=== PATIENT | female | born 1960 | race Caucasian/White ===

== ENCOUNTER → 2017-06-12 | Outpatient (CLI) | payer BC ==
--- NOTE | 2017-06-14 06:58 | MM ---
Reason for exam: screening (asymptomatic). Last mammogram was performed 1 year ago. History: Family history of breast cancer in mother at age 77. Physical Findings: A clinical breast exam by your physician is recommended on an annual basis and results should be correlated with mammographic findings. MG Screening Mammo w CAD Bilateral CC and MLO view(s) were taken. Prior study comparison: June 05, 2016, bilateral MG screening mammo w CAD. May 31, 2015, bilateral MG screening mammo w CAD. The breast tissue is heterogeneously dense. This may lower the sensitivity of mammography. No significant changes when compared with prior studies. ASSESSMENT: Negative, BI-RAD 1 RECOMMENDATION: Routine screening mammogram of both breasts in 1 year.
== END | disposition home or self-care (01) ==
LOC: RADMAMWWP 11:53
PROVIDERS: ATTEND Obstetrics & Gynecology
DX: Z12.31 Encounter for screening mammogram for malignant neoplasm of breast (principal)

== ENCOUNTER → 2017-10-11 | Outpatient (CLI) | payer BC ==
[2017-10-11 09:19] LABS: T4, Free (Free Thyroxine) 0.79 ng/dL (0.78-2.19)
== END | disposition home or self-care (01) ==
LOC: LABWHC1 08:34
PROVIDERS: ATTEND Obstetrics & Gynecology
DX: E78.4 Other hyperlipidemia (principal)
CPT/HCPCS: 36415; 80061; 84439; 84443

== ENCOUNTER → 2018-06-16 | Outpatient (CLI) | payer BC ==
--- NOTE | 2018-06-17 09:21 | MM ---
Reason for exam: screening (asymptomatic). Last mammogram was performed 1 year ago. History: Patient history of other cancer. Family history of breast cancer in mother at age 77. Physical Findings: A clinical breast exam by your physician is recommended on an annual basis and results should be correlated with mammographic findings. MG Screening Mammo w CAD Bilateral CC and MLO view(s) were taken. Prior study comparison: June 12, 2017, bilateral MG screening mammo w CAD. June 05, 2016, bilateral MG screening mammo w CAD. The breast tissue is extremely dense which could obscure a lesion on mammography. No significant changes when compared with prior studies. ASSESSMENT: Benign, BI-RAD 2 RECOMMENDATION: Routine screening mammogram of both breasts in 1 year.
== END | disposition home or self-care (01) ==
LOC: RADMAMWWP 11:52
PROVIDERS: ATTEND Obstetrics & Gynecology
DX: Z12.31 Encounter for screening mammogram for malignant neoplasm of breast (principal)
CPT/HCPCS: 77067

== ENCOUNTER → 2019-07-10 | Outpatient (CLI) | payer BC ==
--- NOTE | 2019-07-10 10:05 | BD ---
EXAMINATION TYPE: Axial Bone Density DATE OF EXAM: 07/10/2019 COMPARISON: Prior DEXA bone scan 2014 CLINICAL HISTORY: Postmenopausal female Height: 68 Weight: 213.8 FRAX RISK QUESTIONS: Alcohol (3 or more units per day): no Family History (Parent hip fracture): no Glucocorticoids (More than 3mos): no (Ex: prednisone, prednisolone, methylprednisolone, dexamethasone, and hydrocortisone). History of Fracture in Adulthood: no Secondary Osteoporosis: 1. Type 1 Diabetes: no 2. Hyperthyroidism: no 3. Menopause before 45: yes 4. Malnutrition: no 5. Chronic liver disease: no Rheumatoid Arthritis: no Current Tobacco Use: no RISK FACTORS HISTORY OF: Family History of Osteoporosis: yes Active: yes Diet low in dairy products/other sources of calcium: yes Postmenopausal woman: before age 47 Lost more than 2 inches in height since high school: no MEDICATIONS: singular, amitriptyline, migraine med as needed Additional History: EXAM MEASUREMENTS: Bone mineral densitometry was performed using the [employer] System. Bone mineral density as measured about the Lumbar spine is: ----- L1-L4(G/cm2): 1.286 T Score Values are as follows: ----- L2: 0.1 ----- L3: 1.9 ----- L4: 0.8 ----- L1-L4: 0.9 Bone mineral density has: increased 5.4 % since study of: 06.01.2015 Bone mineral density about the R hip (g/cm2): 1.048 Bone mineral density about the L hip (g/cm2): 1.010 T Score values are as follows: -----R Neck: 0.1 -----L Neck: -0.2 -----R Total: 0.4 -----L Total: 0.1 Bone mineral density has: % since study of: 06.01.2015 IMPRESSION: Normal range remains present. (Values between +1 and -1 indicate normal bone mass). Consider repeati ng this study in 5 years or sooner if there is some new clinical indication. NOTE: T-SCORE=SD OF THE YOUNG ADULT MEAN.
[2019-07-10 10:26] LABS: Cholesterol 187 mg/dL (<200); Glucose 100 mg/dL (74-99); HDL Cholesterol 37 mg/dL (40-60); LDL Cholesterol,Calculated 108 mg/dL (0-99); Triglycerides 210 mg/dL (<150)
--- NOTE | 2019-07-13 08:17 | MM ---
Reason for exam: screening (asymptomatic). Last mammogram was performed 1 year and 1 month ago. History: Patient history of other cancer. Family history of breast cancer in mother at age 77. Physical Findings: A clinical breast exam by your physician is recommended on an annual basis and results should be correlated with mammographic findings. MG Screening Mammo w CAD Bilateral CC and MLO view(s) were taken. Prior study comparison: June 16, 2018, bilateral MG screening mammo w CAD. June 12, 2017, bilateral MG screening mammo w CAD. The breast tissue is extremely dense which could obscure a lesion on mammography. No significant changes when compared with prior studies. ASSESSMENT: Benign, BI-RAD 2 RECOMMENDATION: Routine screening mammogram of both breasts in 1 year.
== END | disposition home or self-care (01) ==
LOC: RADMAMWWP 09:05
PROVIDERS: ATTEND Obstetrics & Gynecology
DX: Z12.31 Encounter for screening mammogram for malignant neoplasm of breast (principal); Z13.820 Encounter for screening for osteoporosis; Z13.220 Encounter for screening for lipoid disorders
CPT/HCPCS: 36415; 77067; 77080; 80061; 82947

== ENCOUNTER 2020-05-13 12:09 | Observation (INO) | payer BC ==
[2020-05-13] MEDS ORDERED: ASPIRIN 81 MG PO STA (12:24)
[2020-05-13 13:03] LABS: Basophils % (A) 0 %; Eosinophils # (A) 0.1 k/uL (0-0.7); Eosinophils % (A) 1 %; HCT 44.6 % (34.0-46.0); HGB 14.7 gm/dL (11.4-16.0); Lymphocytes # (A) 1.8 k/uL (1.0-4.8); Lymphocytes % (A) 32 %; MCH 29.6 pg (25.0-35.0); MCV 89.5 fL (80.0-100.0); Mean Platelet Volume 8.6; Monocytes # (A) 0.5 k/uL (0-1.0); Monocytes % (A) 8 %; Neutrophils # (A) 3.1 k/uL (1.3-7.7); Neutrophils % (A) 54 %; Platelet Count 181 k/uL (150-450); RBC 4.98 m/uL (3.80-5.40); RDW 12.8 % (11.5-15.5); WBC 5.6 k/uL (3.8-10.6)
[2020-05-13 13:11] LABS: ALT 17 U/L (4-34); AST 30 U/L (14-36); African American GFR (CKD) >90 (>60 ml/min/1.73 sqM); Albumin 4.3 g/dL (3.5-5.0); Alkaline Phosphatase 121 U/L (38-126); Anion Gap 8 mmol/L; Blood Urea Nitrogen 16 mg/dL (7-17); Calcium 9.2 mg/dL (8.4-10.2); Carbon Dioxide 24 mmol/L (22-30); Chloride 108 mmol/L (98-107); Glucose 96 mg/dL (74-99); Non-African American GFR(CKD) >90 (>60 ml/min/1.73 sqM); Potassium 4.2 mmol/L (3.5-5.1); Sodium 140 mmol/L (137-145); Total Bilirubin 0.7 mg/dL (0.2-1.3); Total Protein 6.8 g/dL (6.3-8.2)
[2020-05-13 13:17] LABS: D-Dimer 0.29 mg/L FEU (<0.60); Prothrombin Time 10.2 sec (9.0-12.0)
[2020-05-13 13:18] LABS: Partial Thromboplastin Time 23.1 sec (22.0-30.0)
--- NOTE | 2020-05-13 13:26 | ED ---
Chest Pain HPI - General Chief Complaint: Chest Pain Stated Complaint: SOB, chest pain Time Seen by Provider: 05/13/20 12:13 Source: patient, RN notes reviewed Mode of arrival: wheelchair Limitations: no limitations - History of Present Illness Initial Comments: 59-year-old female presents emergency Department chief complaint of chest pain and shortness breath. Patient states that left shoulder pain for a week or so but states around 1 AM is when she developed sharp chest pain, shortness of breath. She states that she's had some nausea and felt diaphoretic. Patient denies any headache or nausea vomiting diarrhea constipation. Denies any significant cardiac history. No history of PE or DVT. - Related Data Home Medications Medication Instructions Recorded Confirmed Albuterol Sulfate [Proair Hfa] 1 - 2 puff INHALATION RT-Q6H PRN 03/28/16 05/13/20 Amitriptyline HCl 50 mg PO HS 03/28/16 05/13/20 Baclofen 10 mg PO Q6H PRN 03/28/16 05/13/20 Butalb/APAP/Caff 50-325-40Mg 1 - 2 tab PO DAILY PRN 03/28/16 05/13/20 [Fioricet 50-325-40] Eletriptan [Relpax] 40 mg PO DAILY PRN 03/28/16 05/13/20 Lansoprazole [Prevacid] 30 mg PO DAILY PRN 03/28/16 05/13/20 Cetirizine HCl [Zyrtec] 10 mg PO DAILY 05/13/20 05/13/20 Meloxicam [Mobic] 7.5 - 15 mg PO DAILY PRN 05/13/20 05/13/20 Allergies Allergy/AdvReac Type Severity Reaction Status Date / Time No Known Allergies Allergy Verified 05/13/20 13:58 Review of Systems ROS Statement: Those systems with pertinent positive or pertinent negative responses have been documented in the HPI. ROS Other: All systems not noted in ROS Statement are negative. EKG Findings - EKG Comments: EKG Findings:: EKG performed at 12:26 sinus rhythm rate of 80 CO 158 QRS 82 QT/QTC 360/4:[address] elevation or depression noted. Inverted T wave in lead 3 Past Medical History Past Medical History: Asthma, Cancer, GERD/Reflux Additional Past Medical History / Comment(s): migraines, oral cancer History of Any Multi-Drug Resistant Organisms: None Reported Past Surgical History: Cholecystectomy, Uterine Ablation Additional Past Surgical History / Comment(s): D&C, removal of cancer roof of mouth Past Anesthesia/Blood Transfusion Reactions: Previous Problems w/ Anesthesia, Postoperative Nausea & Vomiting (PONV) Additional Past Anesthesia/Blood Transfusion Reaction / Comment(s): states placed on ventilator after spinal Past Psychological History: No Psychological Hx Reported Smoking Status: Never smoker Past Alcohol Use History: Rare Past Drug Use History: None Reported - Past Family History Mother Family Medical History: Cancer Additional Family Medical History / Comment(s): breast Brother(s) Family Medical History: Cancer Additional Family Medical History / Comment(s): 3 brothers with cancer- brain,pancreatic and prostate General Exam Limitations: no limitations General appearance: alert, in no apparent distress Head exam: Present: atraumatic, normocephalic, normal inspection Eye exam: Present: normal appearance, PERRL, EOMI. Absent: scleral icterus, conjunctival injection, periorbital swelling ENT exam: Present: normal exam, normal oropharynx, mucous membranes moist, TM's normal bilaterally Neck exam: Present: normal inspection, full ROM. Absent: tenderness, meningismus, lymphadenopathy Respiratory exam: Present: normal lung sounds bilaterally. Absent: respiratory distress, wheezes, rales, rhonchi, stridor Cardiovascular Exam: Present: regular rate, normal rhythm, normal heart sounds. Absent: systolic murmur, diastolic murmur, rubs, gallop, clicks GI/Abdominal exam: Present: soft, normal bowel sounds. Absent: distended, tenderness, guarding, rebound, rigid Back exam: Absent: CVA tenderness (R), CVA tenderness (L) Neurological exam: Present: alert, oriented X3 Course Vital Signs 05/13/20 05/13/20 05/13/20 12:11 12:43 13:45 Temperature 98.4 F Pulse Rate 87 79 71 Respiratory 16 18 20 Rate Blood Pressure 135/87 126/82 118/81 O2 Sat by Pulse 99 98 99 Oximetry Chest Pain [facility] Labs EKG and chest x-ray reviewed there are no acute findings at this time though symptoms are concerning for ACS. Patient will be admitted for serial troponins, cardiology evaluation. Disposition Clinical Impression: Chest pain Disposition: ADMITTED IP TO THIS HOSP Condition: Stable Additional Instructions: Please return to the Emergency Department if symptoms worsen or any other concerns. Is patient prescribed a controlled substance at d/c from ED?: No Referrals: Cj Mcmillan DO [Primary Care Provider] - 1-2 days
--- NOTE | 2020-05-13 13:35 | XR ---
EXAMINATION TYPE: XR chest 2V DATE OF EXAM: 05/13/2020 COMPARISON: None INDICATION: Chest pain TECHNIQUE: Frontal and lateral views of the chest are obtained. FINDINGS: The heart size is normal. The pulmonary vasculature is normal. The lungs are clear. IMPRESSION: 1. No acute pulmonary process.
[2020-05-13] MEDS ORDERED: NITROGLYCERIN SL TABS 0.4 MG TAB SUBLINGUAL PRN (14:09)
[2020-05-13] MEDS ORDERED: SUMAtriptan succinate 50 MG TAB PO PRN (16:43)
[2020-05-13] MEDS ORDERED: BACLOFEN 10 MG TAB PO PRN (16:43)
[2020-05-13] MEDS ORDERED: ALBUTEROL NEBULIZED 2.5 MG/3 ML INHALATION PRN (16:43)
[2020-05-13] MEDS ORDERED: BUTALB/APAP/CAFF 50-325-40MG TAB PO PRN (16:43)
--- NOTE | 2020-05-13 16:52 | P.HPIM ---
History of Present Illness H&P Date: 05/13/20 Chief Complaint: Atypical chest pain, shortness of breath, severe GERD, asthma and history o 59-year-old female mildly overweight [address] Mcmillan patient with past medical history of mouth cancer, GERD, asthma, and chronic migraine who developed to have significant left shoulder blade pain on and off for the last 2 days woke up 2:00 after midnight with midsternal chest pain radiating toward the left upper side associated with nausea without vomiting she took 2 antiacid on Prevacid felt slightly better one woke up in the morning developed to have worsening shortness of breath and worsening symptom of midsternal chest pain. Patient ended up coming to the emergency department at [facility] where was seen and evaluated his EKG did not show any major abnormality, patient CK with troponin was negative for the time. Patient was started on angina protocol admitted to the hospital for serial enzyme, cardiology consultation along with echocardiogram were ordered. Review of Systems CONSTITUTIONAL: Well-developed no acute respiratory distress. EYES: No icterus sclerae, no conjunctivitis. EARS, NOSE, MOUTH, THROAT, and FACE: No sore throat, lymphadenopathy, carotid bruits or deformity. RESPIRATORY: Mild shortness of breath with history of asthma. CARDIOVASCULAR: Chest pain atypical, mild palpitation and shortness of breath. GASTROINTESTINAL: No Abd pain, Nausea or vomiting, no Diarrhea or constipation, No GI Bleed, no distention or masses. Worsening increase heartburn and indigestion. GENITOURINARY: Negative for Hematuria or UTI, no kidney stones. INTEGUMENT/BREAST: Negative for any muscular injury with mild osteoarthritis.. HEMATOLOGIC/LYMPHATIC: Negative for bleed or purpura. MUSCULOSKELTAL: Negative for Myalgia or arthralgia. Left-sided shoulder blade pain. NEURLOGICAL: No LOC, Sz or syncope, blurred vision dizziness or abnormality.. BEHAVIORAL/PSYCH: Negative. ENDOCRINE: Negative. Past Medical History Past Medical History: Asthma, Cancer, GERD/Reflux Additional Past Medical History / Comment(s): migraines, oral cancer History of Any Multi-Drug Resistant Organisms: None Reported Past Surgical History: Cholecystectomy, Uterine Ablation Additional Past Surgical History / Comment(s): D&C, removal of cancer roof of mouth Past Anesthesia/Blood Transfusion Reactions: Previous Problems w/ Anesthesia, Postoperative Nausea & Vomiting (PONV) Additional Past Anesthesia/Blood Transfusion Reaction / Comment(s): states p laced on ventilator after spinal Past Psychological History: No Psychological Hx Reported Smoking Status: Never smoker Past Alcohol Use History: Rare Additional Past Alcohol Use History / Comment(s): quit smoking 2000 smoked 4-5 years "couple cigarettes/day Past Drug Use History: None Reported - Past Family History Mother Family Medical History: Cancer Additional Family Medical History / Comment(s): breast Brother(s) Family Medical History: Cancer Additional Family Medical History / Comment(s): 3 brothers with cancer- brain,pancreatic and prostate Medications and Allergies Home Medications Medication Instructions Recorded Confirmed Type Albuterol Sulfate [Proair Hfa] 1 - 2 puff INHALATION RT-Q6H PRN 03/28/16 05/13/20 History Amitriptyline HCl 50 mg PO HS 03/28/16 05/13/20 History Baclofen 10 mg PO Q6H PRN 03/28/16 05/13/20 History Butalb/APAP/Caff 50-325-40Mg 1 - 2 tab PO DAILY PRN 03/28/16 05/13/20 History [Fioricet 50-325-40] Eletriptan [Relpax] 40 mg PO DAILY PRN 03/28/16 05/13/20 History Lansoprazole [Prevacid] 30 mg PO DAILY PRN 03/28/16 05/13/20 History Cetirizine HCl [Zyrtec] 10 mg PO DAILY 05/13/20 05/13/20 History Meloxicam [Mobic] 7.5 - 15 mg PO DAILY PRN 05/13/20 05/13/20 History Allergies Allergy/AdvReac Type Severity Reaction Status Date / Time No Known Allergies Allergy Verified 05/13/20 13:58 Physical Exam Vitals: Vital Signs Temp Pulse Pulse Resp BP BP Pulse Ox 05/13/20 16:00 98.3 F 71 16 119/79 100 05/13/20 14:45 98.3 F 68 16 121/86 98 05/13/20 14:23 70 16 124/81 99 05/13/20 13:45 71 20 118/81 99 05/13/20 12:43 79 18 126/82 98 05/13/20 12:11 98.4 F 87 16 135/87 99 Intake and Output 05/13/20 05/13/20 05/13/20 06:59 14:59 22:59 Other: Weight 95.254 kg 95.254 kg General Appearance: Alert, cooperative, no distress, appears stated age. Mildly overweight Neck HEENT: Supple, no lymphadenopathy, no thyroid enlargement, no carotid bruits. Lungs: Clear to auscultation without crackles or wheezes no rhonchi, no defor mity. Chest Wall: Chest wall normal expansion with deep inspiration no tenderness and no deformity was found on exam, no costochondral pain or discomfort. No discomfort of the chest wall area no sign of rash or shingle. Heart: Regular rate and rhythm, S1, S2 normal, no murmur, rub or gallop. Back: Symmetric, no curvature, ROM normal, no CVA tenderness. Abdomen: Soft, non-tender, bowel sounds active all four quadrants, no masses, no organomegaly. Extremities: Extremities normal, atraumatic, no cyanosis or edema. Pulses: 2+ and symmetric. Skin: Skin color, texture, tugor normal, no rashes or lesions. Neurologic: Alert oriented x3 cranial nerves II through XII intact, no motor deficit, no abnormal balance or gait. Results CBC & Chem 7: 05/13/20 12:40 05/13/20 12:40 Labs: Abnormal Lab Results - Last 24 Hours (Table) 05/13/20 Range/Units 12:40 Chloride 108 H (98-107) mmol/L Thrombosis Risk Factor Assmnt - DVT/VTE Prophylaxis DVT/VTE Prophylaxis: Mechanical Prophylaxis ordered - Choose All That Apply Any of the Below Risk Factors Present?: No Assessment and Plan Assessment: 1 atypical chest pain and angina: Patient was admitted to the hospital, CK with troponin 2 be done, add lipid to the morning lab and treat if cholesterol is above 200 or LDL is above 100, continue patient on current management if troponin is elevated patient will require to go for intervention otherwise echocardiogram and possible stress test after seeing cardiology will be done if stress test not possible on the weekend patient can arrange to have stress test as an outpatient. 2 significant shortness of breath: Combination of asthma along with worsening heartburn and indigestion, continue patient on rescue inhaler along with Prevacid. Continue to watch for any sign and symptom of other abnormality. 3 worsening GERD and possible have a hernia: Titrate Prevacid up to twice a day and can be switched to pantoprazole 40 mg twice a day if needed. 4 history of asthma: With no flareup continue patient on pro-air inhaler on as- needed basis. 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 Rodriguez. 6 severe ALLERGY: Remain on sertraline and stable at this point. 7 chronic history of migraine: Patient has been using amitriptyline along with baclofen and if needed can take Fioricet she is taking Relpax as needed. One of the side effect of migraine medication including Relpax slight spasm of the coronary artery sometime the patient declined using Relpax in the last few days. 8 GI prophylaxis: Remain on PPI. 9 DVT prophylaxis: Early mobilization and knee-high VON hose. CODE STATUS: Full code. Admit patient to observation service for 1-2 nights stay.
[2020-05-13] MEDS: PANTOPRAZOLE 40 MG TABLET PO SCH (18:38)
[2020-05-13] MEDS ORDERED: AMITRIPTYLINE HCL 50 MG TAB PO SCH (21:00)
[2020-05-14 04:23] LABS: Cholesterol 188 mg/dL (<200); HDL Cholesterol 29 mg/dL (40-60); LDL Cholesterol,Calculated 100 mg/dL (0-99); Triglycerides 293 mg/dL (<150)
[2020-05-14] MEDS: PANTOPRAZOLE 40 MG TABLET PO SCH (06:30)
[2020-05-14 08:38] VITALS: BP 114/77; PULSE 77; RESP 16; TEMP 97.7
[2020-05-14] MEDS ORDERED: LORATADINE 10 MG TAB PO SCH (09:00)
[2020-05-14] MEDS ORDERED: ASPIRIN 325 MG TAB PO SCH (09:00)
--- NOTE | 2020-05-14 11:57 | P.CRDCN ---
History of Present Illness History of present illness: HISTORY OF PRESENTING ILLNESS This is a pleasant 59-year-old female past medical history significant for gastroesophageal reflux disease. She does not follow regularly with a card iologist for any reason. We have asked her consultation for chest pain. She states for the previous one week she has been having an intermittent discomfort in the left scapular region. The discomfort is associated with movement of her torso and left arm. It is exacerbated by activity. She was tolerating this discomfort without incident until yesterday when she had an episode of burning discomfort in the midsternal region. It felt similar to reflux disease she is experienced in the past. She does have a prescription for Prevacid at home but doesn't take on a regular basis. She did take Prevacid yesterday during this discomfort. Shortly thereafter about 45 minutes later she began belching and her discomfort improved. She has had no further chest discomfort since that time. DIAGNOSTICS EKG reveals sinus mechanism with nonspecific abnormalities inferiorly. Chest xray negative for an acute cardiopulmonary process. Laboratory reviewed, CBC unremarkable, d-dimer 0.29, sodium 140, potassium 4.2, creatinine 0.66, cardiac enzymes negative 3, LDL 100, triglycerides 293. she takes no daily cardiac medications. REVIEW OF SYSTEMS At the time of my exam: CONSTITUTIONAL: Denies fever or chills. CARDIOVASCULAR: Denies chest pain, shortness of breath, orthopnea, PND or palpitations. RESPIRATORY: Denies cough. GASTROINTESTINAL: Denies abdominal pain, diarrhea, constipation, nausea or vomiting. MUSCULOSKELETAL: Denies myalgias. NEUROLOGIC: Denies numbness, tingling or weakness. ENDOCRINE: Denies fatigue, weight change, polydipsia or polyurina. GENITOURINARY: Denies burning, hematuria or urgency with micturation. HEMATOLOGIC: Denies history of anemia or bleeding. PHYSICAL EXAMINATION Blood pressure 114/77 heart rate 77 afebrile maintaining oxygen saturation on room air CONSTITUTIONAL: No apparent distress. HEENT: Head is normocephalic. Pupils are equal, round. Sclerae anicteric. Mucous membranes of the mouth are moist. No JVD. No carotid bruit. CHEST EXAMINATION: Lungs are clear to auscultation. No chest wall tenderness is noted on palpation or with deep breathing. HEART EXAMINATION: Regular rate and rhythm. S1, S2 heard. No murmurs, gallops or rub. ABDOMEN: Soft, nontender. Positive bowel sounds. EXTREMITIES: 2+ peripheral pulses, no lower extremity edema and no calf tenderness. NEUROLOGIC EXAMINATION: Patient is awake, alert and oriented x3. ASSESSMENT Chest pain, atypical for angina. An acute coronary event has been ruled out. History of gastroesophageal reflux disease PLAN An acute coronary event has been ruled out. Echocardiogram has been taken and will be reviewed. Advised the patient to get up and increase her activity and assess for exertion al chest discomfort. We have given her the option of remaining in the hospital until Saturday morning for stress test or going home today and having the stress test performed as an outpatient next week. This was discussed in detail with the patient and her and they opted for outpatient stress testing. This is a reasonable explanation given she has no underlying risk factors. Thank you kindly for this consultation. Nurse Practitioner note has been reviewed, I agree with a documented findings and plan of care. Patient was seen and examined. Past Medical History Past Medical History: Asthma, Cancer, GERD/Reflux Additional Past Medical History / Comment(s): migraines, oral cancer History of Any Multi-Drug Resistant Organisms: None Reported Past Surgical History: Cholecystectomy, Uterine Ablation Additional Past Surgical History / Comment(s): D&C, removal of cancer roof of mouth Past Anesthesia/Blood Transfusion Reactions: Previous Problems w/ Anesthesia, Postoperative Nausea & Vomiting (PONV) Additional Past Anesthesia/Blood Transfusion Reaction / Comment(s): states placed on ventilator after spinal Past Psychological History: No Psychological Hx Reported Smoking Status: Never smoker Past Alcohol Use History: Rare Additional Past Alcohol Use History / Comment(s): quit smoking 2000 smoked 4-5 years "couple cigarettes/day Past Drug Use History: None Reported - Past Family History Mother Family Medical History: Cancer Additional Family Medical History / Comment(s): breast Brother(s) Family Medical History: Cancer Additional Family Medical History / Comment(s): 3 brothers with cancer- brain,pancreatic and prostate Medications and Allergies Home Medications Medication Instructions Recorded Confirmed Type Albuterol Sulfate [Proair Hfa] 1 - 2 puff INHALATION RT-Q6H PRN 03/28/16 05/13/20 History Amitriptyline HCl 50 mg PO HS 03/28/16 05/13/20 History Baclofen 10 mg PO Q6H PRN 03/28/16 05/13/20 History Butalb/APAP/Caff 50-325-40Mg 1 - 2 tab PO DAILY PRN 03/28/16 05/13/20 History [Fioricet 50-325-40] Eletriptan [Relpax] 40 mg PO DAILY PRN 03/28/16 05/13/20 History Lansoprazole [Prevacid] 30 mg PO DAILY PRN 03/28/16 05/13/20 History Cetirizine HCl [Zyrtec] 10 mg PO DAILY 05/13/20 05/13/20 History Meloxicam [Mobic] 7.5 - 15 mg PO DAILY PRN 05/13/20 05/13/20 History Allergies Allergy/AdvReac Type Severity Reaction Status Date / Time No Known Allergies Allergy Verified 05/13/20 13:58 Physical Exam Vitals: Vital Signs Temp Pulse Pulse Resp BP BP Pulse Ox 05/14/20 08:38 97.7 F 77 16 114/77 97 05/14/20 03:00 97.8 F 66 18 105/71 99 05/13/20 20:42 18 05/13/20 20:41 97.8 F 68 18 105/68 98 05/13/20 16:00 98.3 F 71 16 119/79 100 05/13/20 15:00 98.3 F 70 16 119/79 100 05/13/20 14:45 98.3 F 68 16 121/86 98 05/13/20 14:23 70 16 124/81 99 05/13/20 13:45 71 20 118/81 99 05/13/20 12:43 79 18 126/82 98 05/13/20 12:11 98.4 F 87 16 135/87 99 Intake and Output 05/13/20 05/14/20 05/14/20 22:59 06:59 14:59 Other: # Voids 1 1 Weight 95.254 kg Results 05/13/20 12:40 05/13/20 12:40 Cardiac Enzymes 05/13/20 05/13/20 05/13/20 Range/Units 12:40 12:40 16:12 AST 30 (14-36) U/L Troponin I <0.012 <0.012 (0.000-0.034) ng/mL 05/13/20 Range/Units 18:48 AST (14-36) U/L Troponin I <0.012 (0.000-0.034) ng/mL Coagulation 05/13/20 Range/Units 12:40 PT 10.2 (9.0-12.0) sec APTT 23.1 (22.0-30.0) sec Lipids 05/13/20 Range/Units 12:40 Triglycerides 293 H (<150) mg/dL Cholesterol 188 (<200) mg/dL HDL Cholesterol 29 L (40-60) mg/dL CBC 05/13/20 Range/Units 12:40 WBC 5.6 (3.8-10.6) k/uL RBC 4.98 (3.80-5.40) m/uL Hgb 14.7 (11.4-16.0) gm/dL Hct 44.6 (34.0-46.0) % Plt Count 181 (150-450) k/uL Comprehensive Metabolic Panel 05/13/20 Range/Units 12:40 Sodium 140 (137-145) mmol/L Potassium 4.2 (3.5-5.1) mmol/L Chloride 108 H (98-107) mmol/L Carbon Dioxide 24 (22-30) mmol/L BUN 16 (7-17) mg/dL Creatinine 0.66 (0.52-1.04) mg/dL Glucose 96 (74-99) mg/dL Calcium 9.2 (8.4-10.2) mg/dL AST 30 (14-36) U/L ALT 17 (4-34) U/L Alkaline Phosphatase 121 (38-126) U/L Total Protein 6.8 (6.3-8.2) g/dL Albumin 4.3 (3.5-5.0) g/dL Current Medications Generic Name Dose Route Start Last Admin Trade Name Freq PRN Reason Stop Dose Admin Acetaminophen/Butalbital/Caffeine 1 each 05/13/20 16:43 Fioricet 50-325-40 PO DAILY PRN Headache Albuterol Sulfate 2.5 mg 05/13/20 16:43 Ventolin Nebulized INHALATION RT-Q6H PRN Dyspnea Amitriptyline HCl 50 mg 05/13/20 21:00 05/13/20 20:30 Elavil PO 50 mg HS CARY Administration Aspirin 325 mg 05/14/20 09:00 05/14/20 09:58 Aspirin PO 325 mg DAILY CARY Administration Baclofen 10 mg 05/13/20 16:43 Lioresal PO Q6H PRN Muscle Spasm Loratadine 10 mg 05/14/20 09:00 05/14/20 09:58 Claritin PO 10 mg DAILY CARY Administration Nitroglycerin 0.4 mg 05/13/20 14:09 Nitrostat SUBLINGUAL Q5M PRN Chest Pain Pantoprazole Sodium 40 mg 05/13/20 17:30 05/14/20 06:30 Protonix PO 40 mg AC-BID CARY Administration Sumatriptan Succinate 100 mg 05/13/20 16:43 Imitrex PO DAILY PRN Headache Intake and Output 05/13/20 05/14/20 05/14/20 22:59 06:59 14:59 Other: # Voids 1 1 Weight 95.254 kg 05/13/20 12:40 05/13/20 12:40
--- NOTE | 2020-05-14 13:30 | P.DS ---
Providers Date of admission: 05/13/20 14:08 Attending physician: Macario Emery Consults: 05/13/20 14:09 Consult Physician Urgent Consulting Provider: Maurisio Mcgregor Consult Reason/Comments: chest pain Do you want consulting provider notified?: Yes Primary care physician: Cj Mcmillan [facility] Course: 59-year-old female mildly overweight [address] Mcmillan patient with past medical history of mouth cancer, GERD, asthma, and chronic migraine who developed to have significant left shoulder blade pain on and off for the last 2 days woke up 2:00 after midnight with midsternal chest pain radiating toward the left upper side associated with nausea without vomiting she took 2 antiacid on Prevacid felt slightly better one woke up in the morning developed to have worsening shortness of breath and worsening symptom of midsternal chest pain. Patient ended up coming to the emergency department at [facility] where was seen and evaluated his EKG did not show any major abnormality, patient CK with troponin was negative for the time. Patient was started on angina protocol admitted to the hospital for serial enzyme, cardiology consultation along with echocardiogram were ordered. 05/14 patient examined at bedside denies any chest pain or breathing difficulty. Symptoms improved with Prevacid. Patient will be getting outpatient stress test with cardiology. Echocardiogram was negative for any valvular or wall dysfunction. We will hold patient's morbid on discharge and continue patient on Prevacid for another one month. Patient had EGD and colonoscopy 1 years ago which was negative for H. pylori patient's presentation is likely secondary to gastritis. 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 5 severe ALLERGY 6 chronic history of migraine Disposition home with self-care Patient Condition at Discharge: Stable Plan - Discharge Summary Discharge Rx Participant: No New Discharge Prescriptions: Continue Butalb/APAP/Caff 50-325-40Mg [Fioricet 50-325-40] 1 - 2 tab PO DAILY PRN PRN Reason: Headache Amitriptyline HCl 50 mg PO HS Lansoprazole [Prevacid] 30 mg PO DAILY PRN PRN Reason: GERD Eletriptan [Relpax] 40 mg PO DAILY PRN PRN Reason: Headache Baclofen 10 mg PO Q6H PRN PRN Reason: Muscle Spasm Albuterol Sulfate [Proair Hfa] 1 - 2 puff INHALATION RT-Q6H PRN PRN Reason: Dyspnea Cetirizine HCl [Zyrtec] 10 mg PO DAILY Discontinued Meloxicam [Mobic] 7.5 - 15 mg PO DAILY PRN PRN Reason: Pain Discharge Medication List Albuterol Sulfate [Proair Hfa] 1 - 2 puff INHALATION RT-Q6H PRN 03/28/16 [History] Amitriptyline HCl 50 mg PO HS 03/28/16 [History] Baclofen 10 mg PO Q6H PRN 03/28/16 [History] Butalb/APAP/Caff 50-325-40Mg [Fioricet 50-325-40] 1 - 2 tab PO DAILY PRN 03/28/16 [History] Eletriptan [Relpax] 40 mg PO DAILY PRN 03/28/16 [History] Lansoprazole [Prevacid] 30 mg PO DAILY PRN 03/28/16 [History] Cetirizine HCl [Zyrtec] 10 mg PO DAILY 05/13/20 [History] Follow up Appointment(s)/Referral(s): Cj Mcmillan DO [Primary Care Provider] - 1-2 days Renato Winslow MD [STAFF PHYSICIAN] - 05/31/20 3:15 pm Activity/Diet/Wound Care/Special Instructions: Please return to the Emergency Department if symptoms worsen or any other concerns. Discharge Disposition: HOME SELF-CARE
--- NOTE | 2020-05-17 08:22 | ECHOF ---
Referral Reason: MEASUREMENTS -------- HEIGHT: 175.3 cm WEIGHT: 95.3 kg BP: 118/81 RVIDd: 4.3 cm (< 3.3) IVSd: 1.1 cm (0.6 - 1.1) LVIDd: 4.1 cm (3.9 - 5.3) LVPWd: 1.3 cm (0.6 - 1.1) IVSs: 1.4 cm LVIDs: 2.9 cm LVPWs: 1.6 cm LAESV Index (A-L): 18.00 ml/m Ao Diam: 2.7 cm (2.0 - 3.7) AV Cusp: 2.2 cm (1.5 - 2.6) MV EXCURSION: 14.991 mm (> 18.000) MV EF SLOPE: 69 mm/s (70 - 150) MV E Jim: 0.65 m/s MV DecT: 247 ms MV A Jim: 0.53 m/s MV E/A Ratio: 1.23 RAP: 5.00 mmHg RVSP: 18.45 mmHg FINDINGS -------- Sinus rhythm. This was a technically adequate study. The left ventricular size is normal. There is mild concentric left ventricular hypertrophy. Overa ll left ventricular systolic function is normal with, an EF between 55 - 60 %. The diastolic fillin g pattern is normal for the age of the patient 8.73. The right ventricle is severely enlarged. Normal LA size by volume 22+/-6 ml/m2. The right atrium is mildly enlarged. Interatrial and interventricular septum intact. The aortic valve is trileaflet, and appears structurally normal. No aortic stenosis or regurgitation. The mitral valve is normal. There is trace to mild mitral regurgitation. Mild tricuspid regurgitation present. Right ventricular systolic pressure is normal at < 35 mmHg. The right ventricular systolic pressure, as measured by Doppler, is 18.45mmHg. The pulmonic valve was not well visualized. There is no pulmonic regurgitation present. The aortic root size is normal. Normal inferior vena cava with normal inspiratory collapse consistent with estimated right atrial pre ssure of 5 mmHg. There is no pericardial effusion. CONCLUSIONS -------- 1. There is mild concentric left ventricular hypertrophy. 2. Overall left ventricular systolic function is normal with, an EF between 55 - 60 %. 3. The diastolic filling pattern is normal for the age of the patient 8.73 4. The right ventricle is severely enlarged. 5. Normal LA size by volume 22+/-6 ml/m2. 6. The right atrium is mildly enlarged. 7. The aortic valve is trileaflet, and appears structurally normal. No aortic stenosis or regurgitati on. 8. There is trace to mild mitral regurgitation. 9. Mild tricuspid regurgitation present. 10. There is no pericardial effusion. FIRE PATROL: Genesis Pandey RDCS
== END 2020-05-14 13:47 | disposition home or self-care (01) ==
LOC: EC 12:09 → 3NCARDOBS 14:08
PROVIDERS: ADMIT Internal Medicine Geriatric Medicine; ATTEND Internal Medicine Geriatric Medicine
DX: R07.89 Other chest pain (principal); K21.9 Gastro-esophageal reflux disease without esophagitis; J45.909 Unspecified asthma, uncomplicated; G43.909 Migraine, unspecified, not intractable, without status migrainosus; T78.40XA Allergy, unspecified, initial encounter; E66.3 Overweight; Z68.31 Body mass index [BMI] 31.0-31.9, adult; Z85.818 Personal history of malignant neoplasm of other sites of lip, oral cavity, and pharynx; Z79.899 Other long term (current) drug therapy; Z79.891 Long term (current) use of opiate analgesic; Z79.1 Long term (current) use of non-steroidal anti-inflammatories (NSAID); Z90.49 Acquired absence of other specified parts of digestive tract; Z98.890 Other specified postprocedural states; Z91.89 Other specified personal risk factors, not elsewhere classified; Z87.891 Personal history of nicotine dependence; Z80.3 Family history of malignant neoplasm of breast; Z80.8 Family history of malignant neoplasm of other organs or systems; Z80.0 Family history of malignant neoplasm of digestive organs; Z80.42 Family history of malignant neoplasm of prostate; X58.XXXA Exposure to other specified factors, initial encounter
CPT/HCPCS: 99285; 36415; 93005; 93306; 85379; 80061; 80053; 83690; 83735; 84484; 85025; 85610; 85730; 71046; G0378 ×2

== ENCOUNTER → 2020-08-31 | Outpatient (CLI) | payer BC ==
--- NOTE | 2020-09-01 08:09 | MM ---
Reason for exam: screening (asymptomatic). Last mammogram was performed 1 year and 2 months ago. History: Patient history of other cancer. Family history of breast cancer in mother at age 77. Physical Findings: A clinical breast exam by your physician is recommended on an annual basis and results should be correlated with mammographic findings. MG Screening Mammo w CAD Bilateral CC and MLO view(s) were taken. Prior study comparison: July 10, 2019, bilateral MG screening mammo w CAD. June 16, 2018, bilateral MG screening mammo w CAD. The breast tissue is heterogeneously dense. This may lower the sensitivity of mammography. There is no discrete abnormality. ASSESSMENT: Negative, BI-RAD 1 RECOMMENDATION: Routine screening mammogram of both breasts in 1 year.
== END | disposition home or self-care (01) ==
LOC: RADMAMWWP 13:04
PROVIDERS: ATTEND Obstetrics & Gynecology
DX: Z12.31 Encounter for screening mammogram for malignant neoplasm of breast (principal)
CPT/HCPCS: 77067

== ENCOUNTER 2021-05-17 11:50 | Emergency (ER) | payer BC ==
[2021-05-17 11:57] VITALS: TEMP 98.3
--- NOTE | 2021-05-17 12:26 | ED ---
Extremity Problem HPI - General Chief complaint: Extremity Problem,Nontraumatic Stated complaint: varicose vein problem Time Seen by Provider: 05/17/21 12:09 Source: patient Mode of arrival: ambulatory Limitations: no limitations - History of Present Illness Initial comments: Patient is a 60-year-old female presenting to the emergency Department with co mplaints of some discomfort behind her left knee that started yesterday. Patient recently returned back from a 9 day trip in the , she did travel by car, lots of sitting. She states she noticed some discomfort of what she thinks is a varicose vein behind her left knee yesterday, it was tender when she was walking and continues to be tender today. She called her doctor today who recommended coming in for an ultrasound. She has no history of DVTs. She denies any swelling of her lower legs, no redness of her lower legs as well. No chest pain or shortness of breath, no cough. She denies any recent fevers or chills. She has no further complaints. Her vitals are stable upon arrival. - Related Data Home Medications Medication Instructions Recorded Confirmed Albuterol Sulfate [Proair Hfa] 1 - 2 puff INHALATION RT-Q6H PRN 03/28/16 05/13/20 Amitriptyline HCl 50 mg PO HS 03/28/16 05/13/20 Baclofen 10 mg PO Q6H PRN 03/28/16 05/13/20 Butalb/APAP/Caff 50-325-40Mg 1 - 2 tab PO DAILY PRN 03/28/16 05/13/20 [Fioricet 50-325-40] Eletriptan [Relpax] 40 mg PO DAILY PRN 03/28/16 05/13/20 Lansoprazole [Prevacid] 30 mg PO DAILY PRN 03/28/16 05/13/20 Cetirizine HCl [Zyrtec] 10 mg PO DAILY 05/13/20 05/13/20 Allergies Allergy/AdvReac Type Severity Reaction Status Date / Time No Known Allergies Allergy Verified 05/17/21 11:57 Review of Systems ROS Statement: Those systems with pertinent positive or pertinent negative responses have been documented in the HPI. ROS Other: All systems not noted in ROS Statement are negative. Past Medical History Past Medical History: Asthma, Cancer, GERD/Reflux Additional Past Medical History / Comment(s): migraines, oral cancer History of Any Multi-Drug Resistant Organisms: None Reported Past Surgical History: Cholecystectomy, Uterine Ablation Additional Past Surgical History / Comment(s): D&C, removal of cancer roof of mouth Past Anesthesia/Blood Transfusion Reactions: Previous Problems w/ Anesthesia, Postoperative Nausea & Vomiting (PONV) Additional Past Anesthesia/Blood Transfusion Reaction / Comment(s): states placed on ventilator after spinal Past Psychological History: No Psychological Hx Reported Smoking Status: Former smoker Past Alcohol Use History: Rare Past Drug Use History: None Reported - Past Family History Mother Family Medical History: Cancer Additional Family Medical History / Comment(s): breast Brother(s) Family Medical History: Cancer Additional Family Medical History / Comment(s): 3 brothers with cancer- brain,pancreatic and prostate General Exam - General Exam Comments Initial Comments: GENERAL: Patient is well-developed and well-nourished. Patient is nontoxic and in no acute distress. HEAD: Atraumatic, normocephalic. EYES: Pupils equal round and reactive to light, extraocular movements intact, sclera anicteric, conjunctiva are normal. Eyelids were unremarkable. ENT: Moist mucous membranes. NECK: Normal range of motion, supple without lymphadenopathy or JVD. LUNGS: Unlabored respirations. Breath sounds clear to auscultation bilaterally and equal. No wheezes rales or rhonchi. HEART: Regular rate and rhythm without murmurs, rubs or gallops. ABDOMEN: Soft, nontender, normoactive bowel sounds. No guarding, no rebound. No masses appreciated. : Deferred MUSCULOSKELETAL: Normal extremities with adequate strength and normal range of motion, no pitting or edema. No clubbing or cyanosis. NEUROLOGICAL: Patient is alert and oriented x 3. SKIN: Warm, Dry, normal turgor, no rashes or lesions noted. He has a mildly painful varicose vein behind her left knee, this is mobile but there is some hardening to the area, no overlying erythema or signs of infection. Limitations: no limitations Course Vital Signs 05/17/21 05/17/21 11:53 13:51 Temperature 98.3 F Pulse Rate 74 78 Respiratory 18 16 Rate Blood Pressure 124/81 121/84 O2 Sat by Pulse 94 L 98 Oximetry Medical Decision Making - Medical Decision Making Patient is a 60-year-old female here with some soreness around the varicose vein behind her left knee over the past 2 days. She had recent travel to [facility]. Ultrasound reveals a large varicose superficial vein which does appear to have a thrombus about 5 cm in length but is more than 5 cm from any deep vein junction. No evidence for DVT at this time. This is findings with her. Patient will use heat, elevation, keeping mobile. She'll follow up with her primary care. She is agreeable to this. Return parameters were discussed with her and she verbalized understanding. Case discussed with Dr. Becker. Disposition Clinical Impression: Acute superficial venous thrombosis of left lower extremity Disposition: HOME SELF-CARE Condition: Stable Instructions (If sedation given, give patient instructions): Superficial Thrombophlebitis (ED) Additional Instructions: Please return to the Emergency Department if symptoms worsen or any other concerns. Warm packs to the area, elevation, walking. Follow-up with your PCP within 1-2 weeks. Is patient prescribed a controlled substance at d/c from ED?: No Referrals: Cande Her MD [Primary Care Provider] - 1-2 days Time of Disposition: 13:47
--- NOTE | 2021-05-17 13:02 | US ---
EXAMINATION TYPE: US venous doppler duplex LE LT DATE OF EXAM: 05/17/2021 12:42 PM COMPARISON: NONE CLINICAL HISTORY: pain behind knee, recent travel. red, tender lump posterior knee after recent road trip SIDE PERFORMED: Left TECHNIQUE: The lower extremity deep venous system is examined utilizing real time linear array sonog arik with graded compression, doppler sonography and color-flow sonography. VESSELS IMAGED: Common Femoral Vein Deep Femoral Vein Greater Saphenous Vein * Femoral Vein Popliteal Vein Small Saphenous Vein * Proximal Calf Veins (* superficial vessels) Left Leg: Negative for DVT tortuous varicose vein has internal echoes and was not fully compressible at knee level, thrombus a ppears more than 5cm in length but is more than 5cm from deep vein junction IMPRESSION: 1. Left lower extremity negative for deep venous thrombosis. 2. There is a large varicose superficial vein which appears to have thrombus at the level of the palp able abnormality posterior knee
[2021-05-17 13:52] VITALS: BP 121/84; PULSE 78; RESP 16
== END 2021-05-17 13:51 | disposition home or self-care (01) ==
LOC: EC 11:50
DX: I82.812 Embolism and thrombosis of superficial veins of left lower extremity (principal); J45.909 Unspecified asthma, uncomplicated; K21.9 Gastro-esophageal reflux disease without esophagitis; G43.909 Migraine, unspecified, not intractable, without status migrainosus; Z79.899 Other long term (current) drug therapy; Z79.51 Long term (current) use of inhaled steroids; Z87.891 Personal history of nicotine dependence
CPT/HCPCS: 99283

== ENCOUNTER → 2021-07-26 | Outpatient (CLI) | payer BC ==
--- NOTE | 2021-07-26 10:00 | US ---
EXAMINATION TYPE: US venous doppler duplex LE LT DATE OF EXAM: 07/26/2021 7:56 AM COMPARISON: 05/17/2021 CLINICAL HISTORY: 60-year-old female I82.402 THROMBOSIS LT LEG. Pt states h/o SVT left leg, follow-up SIDE PERFORMED: Left TECHNIQUE: The lower extremity deep venous system is examined utilizing real time linear array sonog arik with graded compression, doppler sonography and color-flow sonography. FINDINGS: VESSELS IMAGED: Common Femoral Vein Deep Femoral Vein Greater Saphenous Vein * Femoral Vein Popliteal Vein Small Saphenous Vein * Proximal Calf Veins (* superficial vessels) Left Leg: Negative for DVT. Very short segment of improving SVT within left pop fossa/left posterior knee when compared to previous- partial blood flow within this segment. The other larger more superf icial thrombosed varicosities have resolved. IMPRESSION: 1. No evidence for DVT within the left lower extremity imaged from the groin to the upper calf. 2. The previous superficial thrombosed varicosities along the posterior aspect of the knee have resol selina. An short segment chronic SVT remains just deep to the area of previous varicosities, also improv ed from prior.
== END | disposition home or self-care (01) ==
LOC: RADUSWWP 07:32
PROVIDERS: ATTEND Family Medicine
DX: I82.502 Chronic embolism and thrombosis of unspecified deep veins of left lower extremity (principal)

== ENCOUNTER → 2021-09-04 | Outpatient (CLI) | payer BC ==
--- NOTE | 2021-09-05 12:30 | MM ---
Reason for exam: screening (asymptomatic). Last mammogram was performed 1 year ago. History: Patient is postmenopausal and history of other cancer. Family history of breast cancer in mother at age 77. Physical Findings: A clinical breast exam by your physician is recommended on an annual basis and results should be correlated with mammographic findings. MG Screening Mammo w CAD Bilateral CC and MLO view(s) were taken. Prior study comparison: August 31, 2020, bilateral MG screening mammo w CAD. July 10, 2019, bilateral MG screening mammo w CAD. The breast tissue is heterogeneously dense. This may lower the sensitivity of mammography. No significant changes when compared with prior studies. ASSESSMENT: Benign, BI-RAD 2 RECOMMENDATION: Routine screening mammogram of both breasts in 1 year.
== END | disposition home or self-care (01) ==
LOC: RADMAMWWP 15:47
PROVIDERS: ATTEND Obstetrics & Gynecology
DX: Z12.31 Encounter for screening mammogram for malignant neoplasm of breast (principal); Z80.3 Family history of malignant neoplasm of breast; Z78.0 Asymptomatic menopausal state
CPT/HCPCS: 77067

== ENCOUNTER → 2022-09-05 | Outpatient (CLI) | payer BC ==
--- NOTE | 2022-09-05 18:33 | MM ---
Reason for Exam: Screening (asymptomatic). Last screening mammogram was performed 12 month(s) ago. Patient History: Menarche at age 14. First Full-Term at age 32. Late child-bearing (after 30). Postmenopausal. Mother had breast cancer, age 77. Risk Values: Leena 5 year model risk: 2.8%. NCI Lifetime model risk: 14.6%. Prior Study Comparison: 07/10/2019 Bilateral Screening Mammogram, [facility]. 08/31/2020 Bilateral Screening Mammogram, [facility]. 09/04/2021 Bilateral Screening Mammogram, [facility]. Tissue Density: The breast tissue is extremely dense which could obscure a lesion on mammography. Findings: Analyzed By CAD. Pattern appears symmetrical and stable. No suspicious groups of microcalcifications, spiculated or lobular masses, architectural distortion or other secondary signs of malignancy are mammographically apparent. Overall Assessment: Benign, BI-RAD 2 Management: Screening Mammogram of both breasts in 1 year. A negative mammogram report should not preclude additional follow up of suspicious palpable abnormalities. Patient should continue monthly self breast exam. A clinical breast exam by your physician is recommended on an annual basis and results should be correlated with mammographic findings. Electronically signed and approved by: Amado Jaimes D.O. Radiologis
== END | disposition home or self-care (01) ==
LOC: RADMAMWWP 07:50
PROVIDERS: ATTEND Obstetrics & Gynecology
DX: Z12.31 Encounter for screening mammogram for malignant neoplasm of breast (principal); Z78.0 Asymptomatic menopausal state; Z80.3 Family history of malignant neoplasm of breast
CPT/HCPCS: 77063; 77067

== ENCOUNTER → 2023-09-19 | Outpatient (CLI) | payer BC ==
--- NOTE | 2023-09-20 18:52 | MM ---
Reason for Exam: Screening (asymptomatic). Last mammogram was performed 1 year(s) and 1 month(s) ago. Patient History: Menarche at age 14. First Full-Term at age 32. Late child-bearing (after 30). Postmenopausal. Mother had breast cancer, age 77. Risk Values: Leena 5 year model risk: 2.9%. NCI Lifetime model risk: 14.3%. Prior Study Comparison: 06/12/2017 Bilateral Screening Mammogram, [facility]. 06/16/2018 Bilateral Screening Mammogram, [facility] 07[facility]10/2019 Bilateral Screening Mammogram, [facility] 08/31/2020 Bilateral Screening Mammogram, [facility]. 09/04/2021 Bilateral Screening Mammogram, [facility]. 09/05/2022 Bilateral MG 3D screening mammo w/cad, [facility]. Tissue Density: The breast tissue is extremely dense which could obscure a lesion on mammography. Findings: Analyzed By CAD. Pattern appears symmetrical and stable. No significant interval change is evident. No suspicious groups of microcalcifications, spiculated or lobular masses, architectural distortion or other secondary signs of malignancy are mammographically apparent. Overall Assessment: Benign, BI-RAD 2 Management: Screening Mammogram of both breasts in 1 year. A negative mammogram report should not preclude additional follow up of suspicious palpable abnormalities. Patient should continue monthly self breast exam. A clinical breast exam by your physician is recommended on an annual basis and results should be correlated with mammographic findings. Electronically signed and approved by: Amado Jaimes D.O. Radiologis
== END | disposition home or self-care (01) ==
LOC: RADMAMWWP 10:16
PROVIDERS: ATTEND Obstetrics & Gynecology
DX: Z12.31 Encounter for screening mammogram for malignant neoplasm of breast (principal); Z80.3 Family history of malignant neoplasm of breast; Z78.0 Asymptomatic menopausal state
CPT/HCPCS: 77063; 77067

== ENCOUNTER → 2024-08-06 | Outpatient (CLI) | payer BC ==
--- NOTE | 2024-08-06 11:22 | XR ---
2 view chest. HISTORY: Bronchitis. COMPARISON: 05/13/2020. TECHNIQUE: PA and lateral views chest obtained. FINDINGS: The lungs are clear of consolidative or abnormal interstitial opacity. There is no pleural effusion, pleural thickening or pneumothorax. The heart, pulmonary vasculature, mediastinum and hilum appear normal. The osseous structures soft tissues unremarkable. IMPRESSION: No acute cardiopulmonary disease. No interval change. [facility], , 08/06/2024 11:20 AM
== END | disposition home or self-care (01) ==
LOC: RADXRMAIN 10:33
PROVIDERS: ATTEND Family Medicine
DX: J40 Bronchitis, not specified as acute or chronic (principal)
CPT/HCPCS: 71046

== ENCOUNTER → 2024-09-21 | Outpatient (CLI) | payer BC ==
--- NOTE | 2024-09-22 08:20 | MM ---
Reason for Exam: Screening (asymptomatic). Last screening mammogram was performed 12 month(s) ago. Patient History: Menarche at age 14. First Full-Term at age 32. Late child-bearing (after 30). Postmenopausal. Mother had breast cancer, age 77. Risk Values: Leena 5 year model risk: 3.0%. NCI Lifetime model risk: 13.9%. Prior Study Comparison: 09/04/2021 Bilateral Screening Mammogram, [facility]. 09/05/2022 Bilateral MG 3D screening mammo w/cad, [facility]. 09/19/2023 Bilateral MG 3D screening mammo w/cad, [facility]. Tissue Density: The breasts are heterogeneously dense, which may obscure small masses. Findings: Analyzed By CAD. Right breast: There is no suspicious group of microcalcifications or new suspicious mass. Left breast: There is no suspicious group of microcalcifications or new suspicious mass. Overall Assessment: Negative, BI-RAD 1 Management: Screening Mammogram of both breasts in [address] [facility] will attempt to contact patient to return for supplemental views and ultrasound if indicated. Patient should continue monthly self-breast exams. A clinical breast exam by your physician is recommended on an annual basis. This exam should not preclude additional follow-up of suspicious palpable abnormalities. Note on Leena scores and lifetime risk: 1. A Leena score greater than 3% is considered moderate risk. If this is the case, consider specialist referral to assess eligibility for a risk reducing agent. 2. If overall lifetime risk for the development of breast cancer is 20% or higher, the patient may qualify for future screening with alternating mammogram and breast MRI. [facility], , 09/22/2024 8:17 AM. Electronically signed and approved by: Torres Galindo DO
--- NOTE | 2024-09-22 11:45 | BD ---
EXAMINATION TYPE: Axial Bone Density DATE OF EXAM: 09/21/2024 CLINICAL HISTORY: 63 years old Female. ICD-10 CODE: Z78.0 POSTMENO , Additional History: Height: 69 Weight: 221.3 FRAX RISK QUESTIONS: Alcohol (3 or more units per day): no Family History (Parent hip fracture): no Glucocorticoids (More than 3mos): no (Ex: prednisone, prednisolone, methylprednisolone, dexamethasone, and hydrocortisone). History of Fracture in Adulthood: no Secondary Osteoporosis: 1. Type 1 Diabetes: no 2. Hyperthyroidism: no 3. Menopause before 45: yes 4. Malnutrition: no 5. Chronic liver disease: no Rheumatoid Arthritis: no Current Tobacco Use: no RISK FACTORS HISTORY OF: Surgery to Spine/Hip(right/left)/Wrist (right/left): no EXAM MEASUREMENTS: Bone mineral densitometry was performed using the [employer] System. Bone mineral density as measured about the Lumbar spine is: ----- L1-L4(G/cm2): 1.311 T Score Values are as follows: ----- L1: 0.2 ----- L2: -0.4 ----- L3: 2.8 ----- L4: 1.4 ----- L1-L4: 1.1 Z Score Values are as follows: ----- L1: 0.4 ----- L2: -0.2 ----- L3: 2.9 ----- L4: 1.6 ----- L1-L4: 1.3 Bone mineral density has: increased 1.9 % since study of: 07.10.2019 Bone mineral density about the R hip (g/cm2): 1.018 Bone mineral density about the L hip (g/cm2): 0.954 T Score values are as follows: -----R Neck: -0.2 -----L Neck: -1.2 -----R Total: 0.1 -----L Total: -0.4 Z Score values are as follows: -----R Neck: 0.3 -----L Neck: -0.7 -----R Total: 0.3 -----L Total: -0.3 Bone mineral density has: decreased -4.7 % since study of: 07.10.2019 FRAX%s: The graph provided illustrates a 7.4% chance for a major osteoporotic fx and a 0.5% chance fo r the hips probability for fx in 10 years time. IMPRESSION: Normal (Values between +1 and -1 indicate normal bone mass). Consider repeating this study in 5 year s or sooner if there is some new clinical indication. NOTE: T-SCORE=SD OF THE YOUNG ADULT MEAN. [facility], , 09/22/2024 11:43 AM
== END | disposition home or self-care (01) ==
LOC: RADMAMWWP 14:47
PROVIDERS: ATTEND Family Medicine
DX: Z12.31 Encounter for screening mammogram for malignant neoplasm of breast (principal); Z78.0 Asymptomatic menopausal state; Z80.3 Family history of malignant neoplasm of breast; R92.333 Mammographic heterogeneous density, bilateral breasts
CPT/HCPCS: 77063; 77067; 77080

== ENCOUNTER → 2024-09-29 | Outpatient (CLI) | payer BC ==
[2024-09-29 16:45] LABS: Hepatitis A Antibody IgM Nonreactive (Nonreactive); Hepatitis B Core IgM Nonreactive (Nonreactive); Hepatitis B Surface Antigen Nonreactive (Nonreactive); Hepatitis C IgG Antibody Nonreactive (Nonreactive)
[2024-09-29 16:49] LABS: % Iron Saturation 13.91 (12.00-45.00); Blood Urea Nitrogen 20.8 mg/dL (9.0-27.0); Carbon Dioxide 24.1 mmol/L (21.6-31.8); Chloride 107 mmol/L (96-109); Glucose 107 mg/dL (70-110); Iron 53 UG/DL (50-170); Potassium 4.4 mmol/L (3.5-5.5); Sodium 142 mmol/L (135-145); Total Iron Binding Capacity 381 UG/DL (228-460)
[2024-09-29 16:50] LABS: ALT 32 U/L (8-44); AST 34 U/L (13-35); Albumin 4.3 g/dL (3.8-4.9); Albumin/Globulin Ratio 2.15 Ratio (1.60-3.17); Alkaline Phosphatase 134 U/L (41-126); Calcium 9.5 mg/dL (8.7-10.3); Ferritin 14.6 ng/mL (10.0-291.0); Total Bilirubin 0.4 mg/dL (0.3-1.2); Total Protein 6.3 g/dL (6.2-8.2)
[2024-09-29 17:09] LABS: Ceruloplasmin 30.7 mg/dL (20.0-60.0)
== END | disposition home or self-care (01) ==
LOC: LABWHC1 09:09
PROVIDERS: ATTEND Family Medicine
DX: K13.0 Diseases of lips (principal); R74.01 Elevation of levels of liver transaminase levels
CPT/HCPCS: 36415; 80053; 80074; 82390; 82607; 82728; 83516; 83540; 83550; 84630

== ENCOUNTER → 2024-10-13 | Outpatient (CLI) | payer BC ==
--- NOTE | 2024-10-13 09:27 | US ---
EXAMINATION TYPE: US liver DATE OF EXAM: 10/13/2024 COMPARISON: NONE CLINICAL INDICATION: Female, 63 years old with history of R74.01 ELEVATED TRANSAMINASE LEVEL; TECHNIQUE: Grayscale and color Doppler imaging of the right upper quadrant was performed. FINDINGS: EXAM MEASUREMENTS: Liver Length: 15.4 cm CBD: 0.3 cm Right Kidney: 10.0 x 4.4 x 4.6 cm Pancreas: visualized portions wnl, tail limited by overlying bowel gas Liver: mildly course echotexture probably on a technical basis. No focal lesion seen. Gallbladder: surgically absent Evidence for sonographic Andrade's sign: no CBD: visualized portions wnl, limited by overlying bowel gas Right Kidney: 2.3cm septated cystic area superior pole. No hydronephrosis. IMPRESSION: 1. A 2.3 cm septated cyst at the upper pole right kidney, probably Bosniak category 2. Recommend 6 mo nth follow-up ultrasound to reassess. 2. Status post cholecystectomy. No biliary ductal dilatation. [facility], , 10/13/2024 9:24 AM
== END | disposition home or self-care (01) ==
LOC: RADUSWWP 08:36
PROVIDERS: ATTEND Family Medicine
DX: N28.1 Cyst of kidney, acquired (principal); R74.01 Elevation of levels of liver transaminase levels; Z90.49 Acquired absence of other specified parts of digestive tract
CPT/HCPCS: 76705

== ENCOUNTER → 2025-01-12 | Outpatient (CLI) | payer BC ==
[2025-01-12 19:39] LABS: ALT 22 U/L (8-44); AST 28 U/L (13-35); Albumin 4.3 g/dL (3.8-4.9); Albumin/Globulin Ratio 2.26 Ratio (1.60-3.17); Alkaline Phosphatase 141 U/L (41-126); BUN/Creat Ratio 23.88 Ratio (12.00-20.00); Blood Urea Nitrogen 19.1 mg/dL (9.0-27.0); Calcium 8.9 mg/dL (8.7-10.3); Carbon Dioxide 25.4 mmol/L (21.6-31.8); Chloride 105 mmol/L (96-109); Globulin 1.9 g/dL (1.6-3.3); Glucose 104 mg/dL (70-110); Protein, Total 6.2 g/dL (6.2-8.2); Sodium 140 mmol/L (135-145); Total Bilirubin 0.3 mg/dL (0.3-1.2); Total Protein 6.2 g/dL (6.2-8.2)
[2025-01-13 11:22] LABS: Smooth Muscle Antibody 15 UNITS (<20)
== END | disposition home or self-care (01) ==
LOC: LABWHC1 13:52
PROVIDERS: ATTEND Nurse Practitioner Family
DX: R74.8 Abnormal levels of other serum enzymes (principal)
CPT/HCPCS: 36415; 80053; 81596; 82103; 83516; 84165; 86038

== ENCOUNTER → 2025-03-15 | Outpatient (CLI) | payer BC ==
--- NOTE | 2025-03-15 12:57 | US ---
EXAMINATION TYPE: US kidneys/renal and bladder DATE OF EXAM: 03/15/2025 COMPARISON: 10/13/2024 CLINICAL INDICATION: Female, 64 years old with history of N28.1 COMPLEX RENAL CYST; TECHNIQUE: Grayscale imaging of the bilateral kidneys and urinary bladder: FINDINGS: EXAM MEASUREMENTS: Right Kidney: 10.7X4.4X5.8 cm Left Kidney: 11.8X5.0X5.3 cm SLIGHTLY LIMITED EXAM DUE TO OVERLYING BOWEL Right Kidney: ?SEPTATED APPEARING CYST: 3.3X2.8X2.8CM Left Kidney: ?DILATED RENAL PELVIS ANECHOIC AREA SEEN: 1.7X1.7X1.4CM MULTIPLE ECHOGENIC AREAS SEEN, LARGEST: 1. 0.6CM 2. 0.4CM Bladder: wnl Bilateral Jets seen: Yes IMPRESSION: As above [facility], , 03/15/2025 12:55 PM
== END | disposition home or self-care (01) ==
LOC: RADUSWWP 12:17
PROVIDERS: ATTEND Family Medicine
DX: N28.1 Cyst of kidney, acquired (principal)
CPT/HCPCS: 76770

== ENCOUNTER → 2025-04-13 | Outpatient (CLI) | payer BC ==
--- NOTE | 2025-04-16 15:11 | MR ---
EXAMINATION TYPE: MR kidney wo/w con DATE OF EXAM: 04/13/2025 7:09 PM INDICATION: Patient age:Female; 64 years old; Reason for study: N28.1 COMPLEX RENAL CYST; [facility]. COMPARISON: Renal ultrasound 03/15/2025 TECHNIQUE: Multiplanar multi-sequence imaging was performed without and with IV contrast. The patie nt was given 9 ccs of Gadobutrol intravenously and dynamic imaging was performed. Post IV contrast rogers btraction images were also submitted for review. FINDINGS: LOWER CHEST: No gross irregularity. ABDOMEN Liver: Few subcentimeter nonenhancing scattered cysts. Noncirrhotic morphology. No fatty infiltration . Gallbladder and Bile ducts: Gallbladder is surgically absent. No significant biliary ductal dilatatio n. Common bile duct measures 8 mm at the pancreatic head. No filling defect identified. Pancreas: Unremarkable. Spleen: Unremarkable. Adrenal glands: Unremarkable. Kidneys: No hydronephrosis. Lobulated thin-walled T2 hyperintense nonenhancing right renal upper pole 3.3 cm cyst. T2 hyperintensity nonenhancing thin-walled left renal lower pole and 0.7 cm cyst. None of these cysts demonstrate T1 intrinsic hyperintensity. None demonstrate mural nodularity. Thin septa tion suggested within both cysts. Stomach and Bowel: Unremarkable as visualized. Peritoneum: No evidence of pneumoperitoneum, free fluid, or adenopathy. Vasculature: Unremarkable. No aortic aneurysm. Abdominal wall: Unremarkable. Musculoskeletal: The osseous structures appear intact. IMPRESSION: Bilateral renal Bosniak category 2 cysts. No suspicious enhancement. [facility], , 04/16/2025 3:08 PM
== END | disposition home or self-care (01) ==
LOC: RADMRIMAIN 18:12
DX: N28.1 Cyst of kidney, acquired (principal)
CPT/HCPCS: 74183; A9585